=== PATIENT | female | born 1965 | race African-American/Black ===

== ENCOUNTER 2019-09-15 10:39 | Outpatient (CLI) | payer OTHER ==
--- NOTE | 2019-09-15 12:26 | RAD ---
LEFT KNEE 2 VIEWS: Date: 09/15/19 HISTORY: Medial left knee pain. FINDINGS/IMPRESSION: No fracture, dislocation, or bony destruction seen. Minimal degenerative changes are present. POS: [facility]
== END 2019-09-15 10:40 | disposition home or self-care (01) ==
LOC: NAV RAD 10:39
PROVIDERS: ATTEND Nurse Practitioner Family
DX: M25.562 Pain in left knee (principal); M17.12 Unilateral primary osteoarthritis, left knee

== ENCOUNTER 2023-12-19 17:59 | Emergency (ER) | payer OTHER | END 2023-12-19 19:25 | disposition home or self-care (01) | LOC: NAV ERS 17:59 | DX: E11.649 Type 2 diabetes mellitus with hypoglycemia without coma (principal); Z79.4 Long term (current) use of insulin | CPT/HCPCS: 36416; 99285 ==